=== PATIENT | female | born 1965 | race Caucasian/White ===

== ENCOUNTER → 2016-07-26 | Outpatient (CLI) | payer OTHER ==
[~2016-07-26] MED LIST: LEVOTHROID (S112 MCG PO; LOVAZA1 GM PO; NEXIUM40 MG PO
== END | disposition disaster alternative care site (69) ==
LOC: GRAD 10:00
DX: N93.9 Abnormal uterine and vaginal bleeding, unspecified (principal); N85.2 Hypertrophy of uterus; D25.9 Leiomyoma of uterus, unspecified